=== PATIENT | female | born 1965 | race Hispanic/Latino ===

== ENCOUNTER → 2018-07-31 11:00 | Outpatient (CLI) | payer OTHER, SELFPAY ==
--- NOTE | 2018-07-31 | DI.MG.S_ITS ---
BILATERAL DIGITAL SCREENING MAMMOGRAM 3D/2D WITH CAD: 07/31/2018 CLINICAL: Routine screening. Family history of breast cancer. Comparison is made to exam dated: 05/12/2017 mammogram - [facility]. There are scattered fibroglandular elements in both breasts. Current study was also evaluated with a Computer Aided Detection (CAD) system. No significant masses, calcifications, or other findings are seen in either breast. There has been no significant interval change. IMPRESSION: NEGATIVE There is no mammographic evidence of malignancy. A 1 year screening mammogram is recommended. This exam was interpreted at Station ID: [id number]. NOTE: For mammograms, a report in lay terms will be sent to the patient. Approximately 15% of breast malignancies will not be visualized mammographically. In the management of a palpable breast mass, a negative mammogram must not discourage biopsy of a clinically suspicious lesion. Electronically Signed By: Douglas alves/shelly:08/02/2018 09:12:49 letter sent: Normal Exam ACR BI-RADS Category 1: Negative 3341F
== END ==
PROVIDERS: PCP Nurse Practitioner Family; Visit Provider Nurse Practitioner Family
DX: Z12.31 Encounter for screening mammogram for malignant neoplasm of breast (principal); Z80.3 Family history of malignant neoplasm of breast
CPT/HCPCS: 77063; 77067

== ENCOUNTER → 2019-08-20 15:13 | Outpatient (CLI) | payer OTHER, SELFPAY ==
--- NOTE | 2019-08-20 | DI.MG.S_ITS ---
BILATERAL DIGITAL SCREENING MAMMOGRAM 3D/2D WITH CAD: 08/20/2019 CLINICAL: Routine screening. Family history of breast cancer. Comparison is made to exams dated: 07/31/2018 mammogram and 05/12/2017 mammogram - [facility]. The tissue of both breasts is heterogeneously dense. This may lower the sensitivity of mammography. Current study was also evaluated with a Computer Aided Detection (CAD) system. There are benign vascular calcifications in both breasts. No significant masses, calcifications, or other findings are seen in either breast. There has been no significant interval change. IMPRESSION: There is no mammographic evidence of malignancy. A 1 year screening mammogram is recommended. This exam was interpreted at Station ID: [id number]. NOTE: For mammograms, a report in lay terms will be sent to the patient. Approximately 15% of breast malignancies will not be visualized mammographically. In the management of a palpable breast mass, a negative mammogram must not discourage biopsy of a clinically suspicious lesion. Electronically Signed By: Benigno samaniego/shelly:08/22/2019 07:35:40 letter sent: Normal Exam ACR BI-RADS Category 2: Benign Finding(s) 3342F
== END ==
PROVIDERS: PCP Nurse Practitioner Family; Visit Provider Nurse Practitioner Family
DX: Z12.31 Encounter for screening mammogram for malignant neoplasm of breast (principal); Z80.3 Family history of malignant neoplasm of breast
CPT/HCPCS: 77063; 77067

== ENCOUNTER → 2020-09-08 08:02 | Outpatient (CLI) | payer OTHER, SELFPAY ==
--- NOTE | 2020-09-08 | DI.MG.S_ITS ---
BILATERAL DIGITAL SCREENING MAMMOGRAM 3D/2D WITH CAD: 09/08/2020 CLINICAL: Routine screening. Family history of breast cancer. Comparison is made to exams dated: 08/20/2019 mammogram, 07/31/2018 mammogram, and 05/12/2017 mammogram - [facility]. The tissue of both breasts is heterogeneously dense. This may lower the sensitivity of mammography. Current study was also evaluated with a Computer Aided Detection (CAD) system. There are benign vascular calcifications in both breasts. No significant masses, calcifications, or other findings are seen in either breast. There has been no significant interval change. IMPRESSION: BENIGN There is no mammographic evidence of malignancy. A 1 year screening mammogram is recommended. This exam was interpreted at Station ID: [id number]. NOTE: For mammograms, a report in lay terms will be sent to the patient. Approximately 15% of breast malignancies will not be visualized mammographically. In the management of a palpable breast mass, a negative mammogram must not discourage biopsy of a clinically suspicious lesion. Electronically Signed By: Benigno saamniego/shelly:09/10/2020 09:33:32 letter sent: Normal Exam ACR BI-RADS Category 2: Benign Finding(s) 3342F
== END ==
PROVIDERS: PCP Internal Medicine; Referring Provider Nurse Practitioner Family; Visit Provider Nurse Practitioner Family
DX: Z12.31 Encounter for screening mammogram for malignant neoplasm of breast (principal); Z80.3 Family history of malignant neoplasm of breast
CPT/HCPCS: 77063; 77067

== ENCOUNTER → 2020-10-20 12:40 | Outpatient (CLI) | payer OTHER, SELFPAY ==
[2020-10-20 13:25] LABS: COVID19 -Nasal RAPID Negative (Negative)
== END ==
PROVIDERS: PCP Internal Medicine; Visit Provider Student in an Organized Health Care Education/Training Program
DX: R50.9 Fever, unspecified (principal); Z20.822 Contact with and (suspected) exposure to COVID-19
CPT/HCPCS: 87635

== ENCOUNTER 2021-08-23 10:42 | Emergency (ER) | payer OTHER, MEDICAID, SELFPAY ==
[2021-08-23 10:56] VITALS: BP 129/62; PULSE 86; O2SAT 99
[2021-08-23 11:00] VITALS: BP 123/66; PULSE 89; RESP 16; O2SAT 99
--- NOTE | 2021-08-23 11:12 | DI.RAD.S_ITS ---
PROCEDURE: XR CHEST 1V INDICATIONS: chest pain TECHNIQUE: One view of the chest was acquired. COMPARISON: None. FINDINGS: Surgical changes and devices: None. Lungs and pleura: Lungs are clear. No pleural effusions or pneumothorax. Mediastinum: Mediastinal contours appear normal. Heart size is normal. Bones and chest wall: No suspicious bony lesions. Overlying soft tissues appear unremarkable. IMPRESSION: No acute cardiopulmonary findings Approved by: Juan Hein M.D. on 08/23/2021 at 11:32
[2021-08-23 11:15] VITALS: BP 129/62; PULSE 86; RESP 18; TEMP 37.6; O2SAT 99; BMI 25.0
--- NOTE | 2021-08-23 11:16 | ED.CHESTPAIN ---
HPI - Chest Pain General Chief Complaint: Chest Pain Stated Complaint: Chest pain, dizziness Time Seen by Provider: 08/23/21 11:16 History of Present Illness HPI narrative: Patient is a 56-year-old female with no past medical history received her 1st dose of Moderna 4 days ago. She started having body aches fever and chills she is on that it was from the vaccine however her fund called her home she was in close contact with and said he was positive for COVID. She has had cough and some mild chest discomfort as well. He is currently afebrile her last dose of Tylenol was yesterday. She denies any significant shortness of breath his palpitations she occasionally is dizzy and lightheaded but no numbness tingling or weakness. Related Data Home Medications Medication Instructions Recorded Confirmed multivitamin (Multiple Vitamins) 1 tab PO QDAY #0 03/31/17 Allergies Allergy/AdvReac Type Severity Reaction Status Date / Time No Known Allergies Allergy Uncoded 10/20/20 13:35 Review of Systems Review of Systems Narrative: GENERAL: Denies chills, fatigue, malaise, fever, sweats, travel HEENT: Denies sinus pain, ear pain, sore throat, difficulty swallowing, neck pain RESPIRATORY: Denies dyspnea, cough, wheezing, hemoptysis, sputum. CARDIOVASCULAR: Denies chest pain, palpitations, orthopnea, edema GASTROINTESTINAL: Denies nausea, vomiting, abdominal pain, diarrhea, constipation, melena. : Denies dysuria, frequency, incontinence, hematuria, urinary retention, flank pain. MUSCULOSKELETAL: Denies weakness, joint pain, or bony pain SKIN: No rash, no erythema, no pruritus NEUROLOGIC: Denies weakness, dizziness, headache, numbness, change in speech, confusion PSYCHIATRIC: No concerning psychosocial issues. 12 point review of systems is negative except for those stated above and HPI Patient History Social History Smoking Status: Never smoker Smoking Status: Never smoker Exam Initial Vital Signs Initial Vital Signs: Vital Signs Pulse Rate 86 08/23/21 10:56 Blood Pressure 129/62 08/23/21 10:56 Pulse Oximetry 99 08/23/21 10:56 GENERAL: Alert 56-year-old female in no acute distress. HEENT: Head atraumatic,EOMI, pupils reactive, face symmetric, moist mucous membranes CARDIOVASCULAR: Regular rate and rhythm without murmurs, rubs or gallops. RESPIRATORY: Breath sounds equal bilaterally, no wheezes rales or rhonchi. ABDOMEN: Soft, nontender. Normoactive bowel sounds all 4 quadrants. No guarding or rebound. EXTREMITIES: Normal range of motion, no clubbing or edema. Neurovascularly intact NEUROLOGICAL: Alert and oriented x4.Normal gait and speech. SKIN: Warm, dry, no laceration, no petechiae, no rashes or lesions. Course Orders Ordered: ED Orders 08/23/21 11:07 Complete Blood Count AUTO DIFF Stat Comprehensive Metabolic Panel Stat Lipase Stat Magnesium Stat Troponin & CK Cardiac Panel Stat 08/23/21 11:12 XR chest 1V Stat EKG-12 Lead Stat 08/23/21 11:13 COVID19 -Nasal swab/Pre-Proc Stat Vital Signs Vital signs: Vital Signs - 8 hr 08/23/21 10:56 08/23/21 11:00 08/23/21 11:15 Temperature 99.6 F Pulse Rate 86 89 86 Respiratory Rate 16 18 Blood Pressure 129/62 123/66 129/62 Pulse Oximetry 99 99 99 08/23/21 11:30 08/23/21 12:00 Temperature Pulse Rate 83 75 Respiratory Rate 22 17 Blood Pressure 124/65 109/59 L Pulse Oximetry 99 97 MDM - Chest Pain Lab Data Result diagrams: 08/23/21 11:07 08/23/21 11:07 Labs: Lab Results 08/23/21 08/23/21 08/23/21 Range/Units 11:07 11:07 11:13 WBC 4.7 (4.5-11.0) X10^3/uL RBC 4.36 (4.0-5.2) X10^6/uL Hgb 13.1 (12.0-16.0) g/dL Hct 38.6 (36-46) % MCV 88.6 (80-100) fL MCH 29.9 (26-34) PG MCHC 33.8 (30-36) % RDW 13.6 (11.6-14.8) % Plt Count 264 (150-400) X10^3/uL Neut % (Auto) 59.9 (50-75) % Lymph % (Auto) 31.6 (25-40) % Doddridge % (Auto) 7.5 (3-14) % Eos % (Auto) 0.4 L (2-4) % Baso % (Auto) 0.6 (0-2) % Neut # (Auto) 2800 (4858-4167) /uL Lymph # (Auto) 1500 (1914-2280) /uL Doddridge # (Auto) 400 (0-900) /uL Eos # (Auto) 0 (0-450) /uL Baso # (Auto) 0 (0-100) /uL Sodium 140 (137-145) mmol/L Potassium 3.9 (3.4-5.1) mmol/L Chloride 104 (98-107) mmol/L Carbon Dioxide 29 (22-32) mmol/L BUN 8 (7-17) mg/dL Creatinine 0.89 (0.52-1.04) mg/dL Estimated GFR > 60.0 (>60) mL/min BUN/Creatinine Ratio 9.0 (6-22) Glucose 106 H (70-100) mg/dL Calcium 9.0 (8.4-10.2) mg/dL Magnesium 2.0 (1.6-2.3) mg/dL Total Bilirubin 0.7 (0.2-1.3) mg/dL AST 28 (14-36) IU/L ALT 20 (<35) IU/L Alkaline Phosphatase 87 (38-126) U/L Total Creatine Kinase 43 (30-135) U/L CK-MB (CK-2) TNP CK-MB (CK-2) Rel Index TNP Troponin I < 0.012 (0.01-0.034) ng/mL Total Protein 7.7 (6.3-8.2) g/dL Albumin 4.5 (3.5-5.0) g/dL Globulin 3.2 (1.7-4.1) g/dL Albumin/Globulin Ratio 1.4 (1.0-2.8) Lipase 109 (23-300) U/L SARS-CoV-2 (PCR) Positive H (Negative) Imaging Data Chest x-ray: My Impression: No acute cardiopulmonary process Radiologist's Impression: PROCEDURE:? XR CHEST 1V ? INDICATIONS:? chest pain ? TECHNIQUE:? One view of the chest was acquired.? ? COMPARISON:? None. ? FINDINGS:? ? Surgical changes and devices:? None.? ? Lungs and pleura:? Lungs are clear.? No pleural effusions or pneumothorax.? ? Mediastinum:? Mediastinal contours appear normal.? Heart size is normal.? ? Bones and chest wall:? No suspicious bony lesions.? Overlying soft tissues appear unremarkable.? ? IMPRESSION:? No acute cardiopulmonary findings ? ? ? Approved by: Juan Hein M.D. on 08/23/2021 at 11:32? ECG Data Interpretation: Normal sinus rhythm rate 72 OH interval 142/[address] changes or T-wave inversions MDM Narrative Medical decision making narrative: Patient overall appears well she has only had a few days of symptoms, discussed home monitoring with her. All questions have been addressed. At this time does not meet admission criteria. Discharge Plan Departure Patient Disposition: Home Clinical Impression: COVID-19 Instructions: DI for COVID-19 (Suspected or Confirmed ) Activity Restrictions/Additional Instructions: * if you have not yet been vaccinated is still recommended and encouraged that you do so once your infection has passed *Follow up with your primary provider in 2-3 days or call [phone] AT HOME: -Monitor oxygen with pulse oximeter. If less than 90% for more than 1 hour please return to emergency department -I recommend lying on stomach for side rather than back, it has been proven to increase oxygen levels -Wash hands frequently. -Stay isolated at home please follow the isolation instructions below. -Increase fluid intake. -you may take Tylenol as directed if needed for pain or fever EMERGENCY warning signs for COVID-19: - Difficulty breathing or shortness of breath, oxygen less than 90% - Persistent pain or pressure in the chest - New confusion or inability to arouse - Bluish lips or face CDC Guidelines for home isolation: - Stay away from others - Limit contact with pets and animals: If you must care for a pet, wash your hands before and after interacting with them - Wear a mask while in public all places - Cover your mouth and nose with a tissue when you cough or sneeze. Dispose of tissues in a lined trash can and wash your hands immediately with soap and water for at least 20 seconds. If soap and water are not available, clean hands with alcohol-based hand manager managed backup services that contains at least 60% alcohol. - Clean your hands often with soap and water for at least 20 seconds - Avoid touching your eyes, nose and mouth with unwashed hands - Do not share dishes, drinking glasses, cups, eating utensils, towels, or bedding with other people in your home. After using these items, wash them thoroughly with soap and water or put in the afloat cryptologic manager. - Clean high-touch surfaces in your isolation area (?sick room? and bathroom) every day; let a caregiver clean and disinfect high-touch surfaces in other areas of the home. Clean the area or item with soap and water or another detergent if it is dirty. Then, use a household disinfectant. Prescriptions: No Action multivitamin [Multiple Vitamins] 1 EACH tablet 1 tab PO QDAY Qty: 0 0RF Referrals: Theresa Ralph ARNP [Primary Care Provider] -
[2021-08-23 11:19] LABS: Add Manual Diff / Slide Review NO; Basophils Absolute Auto 0 /uL (0-100); Basophils Percent Auto 0.6 % (0-2); Eosinophils Absolute Auto 0 /uL (0-450); Eosinophils Percent Auto 0.4 % (2-4); Hematocrit 38.6 % (36-46); Hemoglobin 13.1 g/dL (12.0-16.0); Lymphocytes Absolute Auto 1500 /uL (1100-4500); Lymphocytes Percent Auto 31.6 % (25-40); Mean Corpuscular HGB Conc 33.8 % (30-36); Mean Corpuscular Hemoglobin 29.9 PG (26-34); Mean Corpuscular Volume 88.6 fL (80-100); Monocytes Absolute Auto 400 /uL (0-900); Monocytes Percent Auto 7.5 % (3-14); Neutrophils Absolute Auto 2800 /uL (1500-7000); Neutrophils Percent Auto 59.9 % (50-75); Platelet Count 264 X10^3/uL (150-400); Red Blood Cell Count 4.36 X10^6/uL (4.0-5.2); Red Cell Distribution Width 13.6 % (11.6-14.8); White Blood Cell Count 4.7 X10^3/uL (4.5-11.0)
[2021-08-23 11:24] LABS: Alanine Aminotransferase 20 IU/L (<35); Albumin 4.5 g/dL (3.5-5.0); Albumin Globulin Ratio 1.4 (1.0-2.8); Alkaline Phosphatase 87 U/L (38-126); Aspartate Aminotransferase 28 IU/L (14-36); Bilirubin Total 0.7 mg/dL (0.2-1.3); Blood Urea Nitrogen 8 mg/dL (7-17); Carbon Dioxide 29 mmol/L (22-32); Chloride 104 mmol/L (98-107); Creatine Kinase 43 U/L (30-135); Estimated Glomerular Filt Rate > 60.0 mL/min (>60); Globulin 3.2 g/dL (1.7-4.1); Glucose 106 mg/dL (70-100); HEMOLYSIS < 15 (0-50); Lipase 109 U/L (23-300); Potassium 3.9 mmol/L (3.4-5.1); Sodium 140 mmol/L (137-145); Total Protein 7.7 g/dL (6.3-8.2)
[2021-08-23 11:29] LABS: COVID19 -Nasal RAPID POSITIVE (Negative)
[2021-08-23 11:30] VITALS: BP 124/65; PULSE 83; RESP 22; O2SAT 99
[2021-08-23 11:36] LABS: Troponin I < 0.012 ng/mL (0.01-0.034)
[2021-08-23 12:00] VITALS: BP 109/59; PULSE 75; RESP 17; O2SAT 97
== END 2021-08-23 12:18 | disposition home or self-care (01) ==
PROVIDERS: Emergency Provider Emergency Medicine; PCP Internal Medicine
DX: U07.1 COVID-19 (principal)
CPT/HCPCS: 36415; 71045; 80053; 82550; 83690; 83735; 84484; 85025; 87635; 93005; 99283; 99284; C9803

== ENCOUNTER 2021-08-31 08:57 | Emergency (ER) | payer OTHER, MEDICAID, SELFPAY ==
[2021-08-31 09:09] VITALS: BP 130/66; PULSE 91; RESP 18; O2SAT 94
[2021-08-31 09:11] VITALS: BP 130/64; PULSE 90; RESP 15; TEMP 36.6; O2SAT 95; BMI 24.7
--- NOTE | 2021-08-31 09:14 | DI.RAD.S_ITS ---
PROCEDURE: XR CHEST 1V INDICATIONS: chest pain and cough COVID + TECHNIQUE: One view of the chest was acquired. COMPARISON: [facility], CR, XR CHEST 1V, 08/23/2021, 11:43. FINDINGS: Surgical changes and devices: None. Lungs and pleura: Subtle opacities noted along the periphery of the mid to upper lobes, right greater than left. No pleural effusions or pneumothorax. Mediastinum: Mediastinal contours appear normal. Heart size is normal. Bones and chest wall: No suspicious bony lesions. Overlying soft tissues appear unremarkable. IMPRESSION: Small subtle opacities along the peripheral mid to upper lungs bilaterally which may represent Covid pneumonia given clinical history. Dictated by: Joel Munroe D.O. on 08/31/2021 at 9:22 Approved by: Joel Munroe D.O. on 08/31/2021 at 9:24
--- NOTE | 2021-08-31 10:19 | ED_ITS ---
HPI - URI/Sore Throat General Chief Complaint: Upper Respiratory Symptoms Stated Complaint: COVID POS TROUBLE BREATHING Time Seen by Provider: 08/31/21 10:15 Source: patient Mode of arrival: Ambulatory Limitations: no limitations History of Present Illness HPI Narrative: This is a 56-year-old female comes in with known COVID positive. Patient is on day 13 of symptoms. She tested positive for COVID and she states she has had some fevers, fatigue and myalgias. Starting this morning she started having a cough and discomfort in her central chest. Patient states she checked her O2 sat and it dropped to 88 for a couple seconds and then returned back to the mid 90s. Patient states she has not had any additional tips. She states she was coughing for about an hour without the ability to stop easily. Patient states she thought that she was improving until this morning. She had her 1st dose of vaccine about a week before she became symptomatic. She is otherwise healthy female with no other known medical issues. No major surgeries. She denies any allergies to medications. She does not use tobacco, alcohol or illicit. She works as a arranging funeral director. She states she has been quarantine and staying separate from family and friends. Related Data Home Medications Medication Instructions Recorded Confirmed multivitamin (Multiple Vitamins) 1 tab PO QDAY #0 03/31/17 Previous Rx's Medication Instructions Recorded codeine 10 mg-guaifenesin 100 mg/5 10 ml PO Q6H PRN #118 ml 08/31/21 mL oral liquid codeine 10 mg-guaifenesin 100 mg/5 10 ml PO Q6H PRN #118 ml 08/31/21 mL oral liquid Allergies Allergy/AdvReac Type Severity Reaction Status Date / Time No Known Drug Allergies Allergy Verified 08/31/21 09:11 Review of Systems Review of Systems ROS Unobtainable: All systems reviewed & are unremarkable except as noted in HPI and below Patient History Social History Smoking Status: Never smoker Smoking Status: Never smoker alcohol intake frequency: holidays/special occasions only Substance Use Type: does not use Exam Narrative Exam Narrative: GEN: well nourished, well appearing female, alert and oriented x 3, patient appears to be in mild distress. HEENT: Atraumatic, pupils are equal round reactive to light, extraocular movements are intact. HEART: Regular rate and rhythm without murmur, clicks, rubs. LUNGS:Lungs clear to auscultation, no wheezes, rales, crackles, chest moves symmetrically. No tachypnea accessory muscle use. Patient speaks in full sentences. She does have a dry cough intermittently particularly worsened by speech. ABD:bowel sounds normal, soft, non-tender, no guarding, rebound, rigidity, no masses noted, no hepatosplenomegaly MSCL: Non-tender, full range of motion, normal gait NEURO:CN 2-12 intact, sensation normal Initial Vital Signs Initial Vital Signs: Vital Signs Pulse Rate 91 H 08/31/21 09:09 Respiratory Rate 18 08/31/21 09:09 Blood Pressure 130/66 08/31/21 09:09 Pulse Oximetry 94 08/31/21 09:09 Course Orders Ordered: ED Orders 08/31/21 09:11 EKG-12 Lead Stat 08/31/21 09:14 XR chest 1V Stat Vital Signs Vital signs: Vital Signs - 8 hr 08/31/21 09:09 08/31/21 09:11 08/31/21 10:55 Temperature 97.8 F Pulse Rate 91 H 90 76 Respiratory Rate 18 15 18 Blood Pressure 130/66 130/64 104/59 L Pulse Oximetry 94 95 96 MDM - URI/Sore Throat Imaging Data Chest x-ray: Radiologist's Impression: [address] [address] XRay Report Signed Patient: Sonya Garzon MR#: [id number] : 1965 Acct:[id number] Age/Sex: 56 / F Date of Service: 08/31/21 Loc: ED Accession Number: [id number] ?? Procedure: XR chest 1V Ordering Provider: Valentina Proctor D.O. PROCEDURE:? XR CHEST 1V ? INDICATIONS:? chest pain and cough COVID + ? TECHNIQUE:? One view of the chest was acquired.? ? COMPARISON:? [facility], , XR CHEST 1V, 08/23/2021, 11:43. ? FINDINGS:? ? Surgical changes and devices:? None.? ? Lungs and pleura:? Subtle opacities noted along the periphery of the mid to upper lobes, right greater than left.? No pleural effusions or pneumothorax.? ? Mediastinum:? Mediastinal contours appear normal.? Heart size is normal.? ? Bones and chest wall:? No suspicious bony lesions.? Overlying soft tissues appear unremarkable.? ? IMPRESSION:? ? Small subtle opacities along the peripheral mid to upper lungs bilaterally which may represent Covid pneumonia given clinical history. ? ? Dictated by: Joel Munroe D.O. on 08/31/2021 at 9:22 ? ? Approved by: Joel Munroe D.O. on 08/31/2021 at 9:24?? ECG Data Attestation: I personally reviewed and interpreted this ECG as follows: Prior ECG tracings: available for review Interpretation: Sinus rhythm rate of 80, GA 148 QRS of 98 QTC of 403. No acute ST changes appreciated. Patient has prior from 08/23/2021 which is concerning. MDM Narrative Medical decision making narrative: This is a 56-year-old female who has been symptomatic with a known positive COVID test for almost 13 days. She developed a cough earlier today had a dip to 88% for a couple seconds which normalized and has not been hypoxic here in the department. Chest x-ray does show a mild pneumonia. She has continued to feel ill but thought she was improving until developing her cough today. At this time feel she is appropriate for discharge home. EKG did not show acute changes, appropriate vital signs. Patient does have a pulse oximeter she was asked to continue to monitor. Was given a prescription for some cough medicati on. Patient is outside the window for monoclonal infusion. Discharge Plan Departure Patient Disposition: Home Clinical Impression: 2019 novel coronavirus-infected pneumonia (NCIP) Instructions: DI for COVID-19 (Suspected or Confirmed ) Activity Restrictions/Additional Instructions: *You have been diagnosed with COVID pneumonia If you wish you may obtain a pulse oximeter for use at home to monitor. Please return to the ER if your pulse oximeter shows an O2 saturation less than 94%. Take cough medicine as prescribed. This medication can make you sleepy do not drive, perform hazardous activities or make any major decisions while taking it. This medication will make you constipated please take a stool softener once to twice daily until stools are soft and regular. Prescription sent to [facility] in [place]. Prescription was not available at [facility]. We were contacted by the pharmacy and was changed to [facility] in [place]. *What to do: * per recommendations from the CDC and the [facility] Department of Health * stay home except to get medical care. Restrict activities outside your home, except for getting medical care. Do not go to work, school, or public areas. Avoid using public transportation, ride sharing, or taxis. * separate yourself from other people in your home. * call ahead before visiting your doctor * Wear a face mask * Cover your coughs and sneezes * Clean your hands often * Avoid sharing household items * Clean all high-touch services every day * Monitor your symptoms and seek prompt medical attention if your illness is worsening, particularly with difficulty in breathing. Discussed continuing home isolation * for individuals with symptoms who are confirmed or suspected cases of COVID-19 and are directed to care for themselves at home, discontinue home isolation under the following conditions: 1. At least 72 hours have passed since recovery, defined as resolution of fever without the use of fever reducing medications, and improvement in respiratory symptoms (cough, shortness of breath) AND, 2. At least 7 days have passed since symptoms 1st appeared Prescriptions: New codeine-guaifenesin 10-100 mg/5 mL liquid 10 ml PO Q6H PRN (Reason: cough) Qty: 118 0RF codeine-guaifenesin 10-100 mg/5 mL liquid 10 ml PO Q6H PRN (Reason: cough) Qty: 118 0RF No Action multivitamin [Multiple Vitamins] 1 EACH tablet 1 tab PO QDAY Qty: 0 0RF Referrals: Theresa Ralph ARNP [Primary Care Provider] - Stand Alone Forms: Work Release Note
[2021-08-31 10:55] VITALS: BP 104/59; PULSE 76; RESP 18; O2SAT 96
== END 2021-08-31 10:56 | disposition home or self-care (01) ==
PROVIDERS: Emergency Provider Emergency Medicine; PCP Internal Medicine
DX: U07.1 COVID-19 (principal); J12.82 Pneumonia due to coronavirus disease 2019; R07.9 Chest pain, unspecified
CPT/HCPCS: 71045; 93005; 93010; 99283